=== PATIENT | female | born 1950 | race African-American/Black ===

== ENCOUNTER 2016-10-06 07:09 | Emergency (ER) | payer MEDICARE, OTHER ==
[2016-10-06 07:19] VITALS: BP 162/94
== END 2016-10-06 07:40 | disposition home or self-care (01) ==
LOC: ED 07:09
DX: G89.29 Other chronic pain (principal); M54.5 Low back pain; I10 Essential (primary) hypertension; M54.30 Sciatica, unspecified side; Z79.01 Long term (current) use of anticoagulants; Z88.6 Allergy status to analgesic agent; Z98.890 Other specified postprocedural states

== ENCOUNTER 2017-03-23 13:18 | Emergency (ER) | payer MEDICARE, MEDICAID ==
[2017-03-23 15:15] VITALS: BP 151/79
== END 2017-03-23 15:15 | disposition home or self-care (01) ==
LOC: ED 13:18
DX: M54.9 Dorsalgia, unspecified (principal); I10 Essential (primary) hypertension; Z86.73 Personal history of transient ischemic attack (TIA), and cerebral infarction without residual deficits

== ENCOUNTER 2018-02-19 08:39 | Emergency (ER) | payer MEDICARE, OTHER ==
[~2018-02-19] VITALS: Ht 154.9 cm; Wt 68.9 kg
[2018-02-19 08:50] VITALS: BP 166/90; Ht 154.9 cm; Wt 68.9 kg
== END 2018-02-19 09:31 | disposition home or self-care (01) ==
LOC: ED 08:39
DX: S16.1XXA Strain of muscle, fascia and tendon at neck level, initial encounter (principal); S39.012A Strain of muscle, fascia and tendon of lower back, initial encounter; M54.30 Sciatica, unspecified side; Z86.73 Personal history of transient ischemic attack (TIA), and cerebral infarction without residual deficits; Z90.89 Acquired absence of other organs; Z88.6 Allergy status to analgesic agent; Z98.890 Other specified postprocedural states; V43.52XA Car driver injured in collision with other type car in traffic accident, initial encounter; Y93.89 Activity, other specified; Y92.413 State road as the place of occurrence of the external cause; Y99.8 Other external cause status; I10 Essential (primary) hypertension

== ENCOUNTER 2018-03-05 12:42 | Emergency (ER) | payer MEDICARE, OTHER ==
[~2018-03-05] VITALS: Ht 154.9 cm; Wt 68.9 kg
[2018-03-05 13:05] VITALS: BP 139/74; Ht 154.9 cm; Wt 68.9 kg
== END 2018-03-05 15:22 | disposition home or self-care (01) ==
LOC: ED 12:42
DX: J45.909 Unspecified asthma, uncomplicated (principal); I10 Essential (primary) hypertension; Z86.73 Personal history of transient ischemic attack (TIA), and cerebral infarction without residual deficits; Z90.89 Acquired absence of other organs; Z88.8 Allergy status to other drugs, medicaments and biological substances
CPT/HCPCS: J7512; J7613; J7644

== ENCOUNTER 2020-03-09 11:11 | Emergency (ER) | payer OTHER ==
[~2020-03-09] VITALS: Ht 154.9 cm; Wt 70.8 kg
[2020-03-09 11:36] VITALS: Ht 154.9 cm; Wt 70.8 kg
[2020-03-09 13:46] VITALS: BP 155/76
== END 2020-03-09 13:46 | disposition home or self-care (01) ==
LOC: ED 11:11
DX: S82.024A Nondisplaced longitudinal fracture of right patella, initial encounter for closed fracture (principal); M17.11 Unilateral primary osteoarthritis, right knee; I10 Essential (primary) hypertension; Z86.73 Personal history of transient ischemic attack (TIA), and cerebral infarction without residual deficits; Z90.89 Acquired absence of other organs; Z88.6 Allergy status to analgesic agent; V49.3XXA Car occupant (driver) (passenger) injured in unspecified nontraffic accident, initial encounter; Y93.I9 Activity, other involving external motion; Y92.413 State road as the place of occurrence of the external cause; Y99.8 Other external cause status
CPT/HCPCS: Q0092

== ENCOUNTER 2020-05-17 14:58 | Emergency (ER) | payer OTHER, MEDICARE ==
[~2020-05-17] VITALS: Ht 154.9 cm; Wt 70.3 kg
[2020-05-17 15:18] VITALS: BP 112/49; Ht 154.9 cm; Wt 70.3 kg
== END 2020-05-17 19:45 | disposition home or self-care (01) ==
LOC: ED 14:58
DX: S82.001A Unspecified fracture of right patella, initial encounter for closed fracture (principal); M17.11 Unilateral primary osteoarthritis, right knee; I10 Essential (primary) hypertension; Z88.6 Allergy status to analgesic agent; Z90.89 Acquired absence of other organs; W22.8XXA Striking against or struck by other objects, initial encounter; Y93.89 Activity, other specified; Y92.89 Other specified places as the place of occurrence of the external cause; Y99.8 Other external cause status

== ENCOUNTER 2020-05-25 16:58 | Emergency (ER) | payer OTHER, MEDICARE ==
[~2020-05-25] VITALS: Ht 154.9 cm; Wt 69.4 kg
[2020-05-25 17:04] VITALS: BP 158/88; Ht 154.9 cm; Wt 69.4 kg
== END 2020-05-25 21:15 | disposition home or self-care (01) ==
LOC: ED 16:58
DX: S82.001A Unspecified fracture of right patella, initial encounter for closed fracture (principal); M79.641 Pain in right hand; M54.9 Dorsalgia, unspecified; G89.29 Other chronic pain; I10 Essential (primary) hypertension; Z90.89 Acquired absence of other organs; Z88.6 Allergy status to analgesic agent; V49.9XXA Car occupant (driver) (passenger) injured in unspecified traffic accident, initial encounter; Y93.89 Activity, other specified; Y92.89 Other specified places as the place of occurrence of the external cause; Y99.8 Other external cause status

== ENCOUNTER 2020-06-16 13:57 | Emergency (ER) | payer OTHER, MEDICARE ==
[~2020-06-16] VITALS: Ht 154.9 cm; Wt 73.0 kg
[2020-06-16 14:06] VITALS: BP 120/66; Ht 154.9 cm; Wt 73.0 kg
== END 2020-06-16 16:00 | disposition home or self-care (01) ==
LOC: ED 13:57
DX: M19.041 Primary osteoarthritis, right hand (principal); J45.909 Unspecified asthma, uncomplicated; I10 Essential (primary) hypertension; Z88.6 Allergy status to analgesic agent; Z90.89 Acquired absence of other organs